=== PATIENT | female | born 1940 | race African-American/Black ===

== ENCOUNTER 2019-04-11 17:52 | Emergency (ER) | payer MEDICARE, OTHER ==
[~2019-04-11] VITALS: Ht 177.8 cm; Wt 75.0 kg
[2019-04-11 17:56] VITALS: BP 142/69
== END 2019-04-11 21:18 | disposition left against medical advice (07) ==
LOC: ER 17:52
DX: R10.9 Unspecified abdominal pain (principal); Z53.21 Procedure and treatment not carried out due to patient leaving prior to being seen by health care provider